=== PATIENT | female | born 1985 | race Hispanic/Latino ===

== ENCOUNTER 2020-04-07 10:48 | Emergency (ER) | payer SELFPAY ==
--- NOTE | 2020-04-07 12:29 | RAD ---
XR Forearm Rt 2 View STANDARD HISTORY: Right forearm pain and swelling FINDINGS: There are postop changes with plate and screws in the distal radius and ulna. Metallic hardware is in tact. The right radius and ulna are also intact. No significant osseous abnormalities are seen.
[2020-04-07] MEDS ORDERED: Ibuprofen 200 MG TAB ONE (12:38)
== END 2020-04-07 13:25 | disposition home or self-care (01) ==
LOC: ERS 10:48
DX: M79.631 Pain in right forearm (principal)